=== PATIENT | male | born 1955 | race Caucasian/White ===

== ENCOUNTER 2018-07-17 06:16 | Day surgery (SDC) | payer MEDICARE ==
[~2018-07-17 06:16] MED LIST: Buffered Lidocaine 1% SYRIN* 1 ML/SYRINGE INTRADERM ONE; DiMENhydriNATE IV* 50 MG/ML VIAL IV PUSH ONE; Famotidine IV* 10 MG/ML 2 ML (20 mg) IV ONE; Lactated Ringers 1000 ML Bag* 1,000 ML IV SCH
[2018-07-17] MEDS ORDERED: Famotidine IV* 10 MG/ML 2 ML (20 mg) ONE (06:34)
[2018-07-17] MEDS ORDERED: ceFAZolin 2 GM PREMIX in ORs 2 GM/50 ML BAG IVPB ONE (06:34)
[2018-07-17] MEDS ORDERED: DiMENhydriNATE IV* 50 MG/ML VIAL ONE (06:34)
[2018-07-17] MEDS ORDERED: Rocuronium* 10 MG/ML VIAL ONE (07:55)
[2018-07-17] MEDS ORDERED: Midazolam* 1 MG/ML 2 ML VIAL (2 MG) ONE (07:55)
[2018-07-17] MEDS ORDERED: Propofol* 10 MG/ML 20 ML BTL ONE (07:55)
[2018-07-17] MEDS ORDERED: fentaNYL* 50 MCG/ML 2 ML VIAL (100 MCG VIAL) ONE (07:55)
[2018-07-17] MEDS ORDERED: Lidocaine 2% PF * 5 ML VIAL ONE (07:56)
[2018-07-17] MEDS ORDERED: Bupivacaine 0.5% W/EPI SDV* 30 ML VIAL ONE (08:07)
[2018-07-17] MEDS ORDERED: EPINEPHRINE 1 MG/ML 1 ML VIAL ONE (08:07)
[2018-07-17] MEDS ORDERED: ROPIVACAINE 5 MG/ML 30 ML BTL (0.5%) ONE (08:19)
[2018-07-17] MEDS ORDERED: EPHEDrine (Pressors)* 50 MG/ML VIAL ONE (09:37)
[2018-07-17] MEDS ORDERED: Ondansetron INJ* 2 MG/ML VIAL ONE (11:01)
[2018-07-17] MEDS ORDERED: Ketorolac INJ* 30 MG/ML 1 ML VIAL IV PRN (12:09)
[2018-07-17] MEDS ORDERED: Naloxone* 0.4 MG/ML 1 ML VIAL IV PRN (12:09)
[2018-07-17] MEDS ORDERED: PROCHLORPERAZINE INJ 5 MG/ML 2 ML VIAL IV PRN (12:09)
[2018-07-17] MEDS ORDERED: HYDROcodone/ACETAMIN 5-325 MG* 1 TAB PO PRN (12:09)
[2018-07-17] MEDS ORDERED: fentaNYL* 50 MCG/ML 2 ML VIAL (100 MCG VIAL) IV PRN (12:09)
[2018-07-17] MEDS ORDERED: HYDROcodone/ACETAMIN 5-325 MG* 1 TAB ONE (12:15)
[2018-07-17] MEDS ORDERED: Ketorolac INJ* 30 MG/ML 1 ML VIAL ONE (12:15)
[2018-07-17 13:24] VITALS: BP 119/68
--- NOTE | 2018-07-18 20:44 | OP ---
OPERATIVE REPORT: DATE OF OPERATION: 07/17/18 DATE OF : 51. SURGEON: Rogerio Blake MD. CRYSTAL INSPECTOR: FELTON Calderon. A physician fiscal assistant was required for the length of the procedure for assistance with patient positi oning, instrumentation, and closure. ANESTHESIOLOGIST: Dr. Caden Meng. ANESTHESIA: General anesthesia, regional interscalene block anesthesia, local anesthesia consisting of Marcaine 0.5% with epinephrine 10 cc placed about the open anterior incision used to perform the b iceps tenodesis. PRE-OP DIAGNOSES: 1. Right shoulder painful biceps tendon subluxation. 2. Right shoulder AC joint osteoarthritis. 3. Right shoulder subacromial impingement and bursitis. 4. Right shoulder rotator cuff tendinitis, possible tears supraspinatus, subscapularis. 5. Right shoulder inferior labral paralabral cyst possible inferior labral tear. POST-OP DIAGNOSES: 1. Right shoulder painful biceps tendon subluxation, long head. 2. Right shoulder AC joint osteoarthritis. 3. Right shoulder subacromial impingement and bursitis. 4. Right shoulder rotator cuff tendinitis. 5. Right shoulder rotator tendon tear, partial thickness, undersurface, supraspinatus. 6. Right shoulder no significant or unstable inferior labral tear. OPERATIVE PROCEDURE: 1. Right shoulder arthroscopic rotator cuff repair, partial tear, with biologic Regeneten patch. 2. Right shoulder arthroscopic subacromial decompression. 3. Right shoulder arthroscopic distal clavicle resection. 4. Right shoulder open proximal biceps tenodesis, subpectoral. ANTIBIOTICS: Ancef 2 g IV. IV FLUIDS: 1300 cc crystalloid. [id number]-AA-[id number] TIME: Of 124 minutes. This time was significantly longer than I had anticipated given that there was a long wait of period of time for the biologic patch to be procured. SPECIMEN: None. IMPLANTS: [employer] Regeneten biologic patch, size large. Multiple PLLA ivana in that [facility] h. Arthrex proximal biceps unicortical tenodesis button x1. COMPLICATIONS: None. ESTIMATED BLOOD LOSS: Minimal. 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 There was a specific injury 2 years prior when the patient trying to catch a falling piece of sheet r ock while standing on ladder. Patient had nighttime pain. Occasional sudden jabs/jolts of pain ante riorly. This was a generalized pain about the shoulder and upper arm. Patient was referred to me. I made the abovementioned diagnoses. I spoke to the patient about biceps release versus tenodesis preoperatively. He preferred tenodesis. Preoperatively, I spoke to him about the possibilities for rotator cuff treatment including nothing , debridement, placement of biologic patch, and classic suture anchor rotator tendon repair. MRI had shown much signal change about the supraspinatus, indicating a possible partial thickness tear. As well the medial subluxation of the biceps were in need for a possible subscapularis tendon tear. Discussed risks and potential complications of surgery. Patient opted to move forward with surgery. DESCRIPTION OF PROCEDURE: The patient signed a written consent in the preoperative holding. Operati ve extremity was marked in the preoperative holding. The patient underwent regional interscalene ner ve block by Dr. Meng in preoperative holding. The patient was taken back to the operating room and pl aced supine on the operating room table. He was sedated and intubated. Placed in the lateral decubitus position. Duong bag hardened. Axillary roll placed. All bony promin ences padded. Right shoulder placed in longitudinal traction with 15 pounds with appropriate amount of forward flexion and abduction. Right shoulder was prepped and draped. A surgical time-out perform ed. Entering into the glenohumeral joint, right from posterior with a spinal needle, injected 30 cc of no rmal saline. Established posterior glenohumeral joint portal. Commenced diagnostic arthroscopy. No articular cartilage lesions appreciated. Immediately, I encountered rotator cuff tearing of the s upraspinatus. Was not clear at this point whether this was partial or full thickness. The fraying w as significant. The biceps tendon showed some fraying and there was an unstable labral tear. I probed the labrum fro m anterior after I created an anterior glenohumeral joint portal under direct visualization. Given t he unstable superior labral tear, I entered scissors, although then completed the proximal biceps rel eased with electrocautery, VAPR device. The biceps seemed quite blind at its origin. Evaluated anteroinferior and posteroinferior labrum. No clear unstable tear. I next evaluated the rotator cuff. In the subscapularis I inserted far lateral but there was no danial r tear off the lesser trochanter. This is one of the shoulders where the insertion of the subscapula ris is much greater as lesser trochanter especially superiorly. Certainly no retraction. No torn ed ge to appreciate. Next, I moved to the undersurface of the supraspinatus and infraspinatus. Using an arthroscopic shav er to smooth out the frayed tendon to get some sort of feel for the amount of tearing. After I had s moothed out the tendon, I was able to measure the amount of footprint visible. I measured it to be s omething like 5 or 6 mm using my arthroscopic probe tip. This was certainly concerning. I used a sp inal needle to note the area that the amount of tearing was most severe from the outside of the shoul emelia. I removed fluids and instruments from the glenohumeral joint and moved to the subacromial space anter ior and posterior. I established a lateral and posterolateral portals under direct visualization. U sing arthroscopic shaver to debride bursitic tissue from the subacromial space, no clear bursal sided tearing of the rotator cuff. I probed with a switching stick and orthoscopic probe. No partial thi ckness or full thickness tearing was appreciated here. Given the stoutness of the tendon on its bursal side, I did not think a take down and suture anchor r epair of the rotator cuff made sense. To be sure, I moved one more time to the glenohumeral joint. I again inspected the rotator cuff from its undersurface. I measured that 5 to 6 mm of footprint. I thought this was a medium grade partial thickness undersided tear. I decided to place a biologic [facility]. There was some miscommunication as I have been told that a account retention representative from the biologic patch [employer] was on the premises, although he was not. At this point, we asked for him to get to the [facility] with the biologic patch. In the interim, I addressed the spurs about the subacromial space. Using arthroscopic christine, I flatte riley out the undersurface of the anterior aspect of the acromion. I next moved to the AC joint. I us ed VAPR to debride bursitic tissue and then debrided 8 mm to the distal end of the clavicle with an a rthroscopic christine. As the patch was still not available, we next proceeded to the open component of the case. Now I too k the right upper extremity out of longitudinal traction and converted the patient to a partially sup ine position. I made an anteromedial longitudinal skin incision and dissected down at the bicipital groove. I ryan ernestine the long head of the biceps tendon. I debrided the bicipital groove. I next placed a Beath pin unicortically. I next used a FiberLoop to place 3 stitches in the long head biceps tendon for the a ppropriate length-tension relationship. I loaded the biceps button, placed unicortically, slipped it and tied the knot. I used a free needle to place another tenodesis stitch. I removed excess stitch and tendon. I irrigated and removed instruments. Closed subcutaneous tissue with buried simple stit ches using Vicryl 3-0 suture. Closed subcuticular layer with a running stitch using Monocryl 4-0 sutu re. I placed local anesthetic Marcaine 0.5% with epinephrine into the subcutaneous tissue surroundin g the skin incision. We next waited for a period of time for the biologic patch. Hard to know exactly how long this may h ave been; may have been 30 minutes or 40 minutes. When biologic patch was available, the patient's right upper extremity had been replaced into longitu dinal traction. I had created a superolateral portal. I brought my Regeneten biologic patch, size l arge, from the lateral portal, placed it over the supraspinatus and some anterior infraspinatus and t ucked in place with multiple PLLA ivana. I was very happy with the stability of the graft and in i ts excellent coverage. I removed instruments and fluids from the subacromial space. We closed skin i ncisions, arthroscopic with [id number] and twelve stitches using nylon 3-0 suture. Over the distal biceps incision, we placed Mastisol, Steri-Strips, 4x4, and Tegaderm. Over the arthr oscopic incisions, we placed Xeroform, 4x4s, ABDs, foam tape. Sling with a abduction pillow. Patient was awakened, extubated and transferred to the PACU. DISPOSITION: Wound care instructions provided. Patient was given hydrocodone with acetaminophen for pain and Keflex for several days for infection prophylaxis. He will follow up in clinic 10 to 14 da ys postoperatively. He will start physical therapy immediately according to the [facility] protocol. [id number]/[facility] #: [id number]
== END 2018-07-17 13:23 | disposition home or self-care (01) ==
LOC: OR 06:16
PROVIDERS: ATTEND Orthopaedic Surgery
DX: M75.111 Incomplete rotator cuff tear or rupture of right shoulder, not specified as traumatic (principal); M19.011 Primary osteoarthritis, right shoulder; M75.41 Impingement syndrome of right shoulder; M75.51 Bursitis of right shoulder; G89.18 Other acute postprocedural pain; I10 Essential (primary) hypertension; E11.9 Type 2 diabetes mellitus without complications; Z79.84 Long term (current) use of oral hypoglycemic drugs; E78.00 Pure hypercholesterolemia, unspecified
CPT/HCPCS: C1713; C1776; J0690; J1240; J1885; J2250; J2405; J2704; J2795; J3010